=== PATIENT | female | born 1945 | race Caucasian/White ===

== ENCOUNTER 2019-01-20 08:09 | Emergency (ER) | payer MEDICARE, MEDICAID ==
[~2019-01-20] VITALS: Ht 160 cm; Wt 68.0 kg
[~2019-01-20 08:09] MED LIST: ASPI-986 PO; CLOP75TA33 PO; FOLI1TAB63 PO; INSULIN; ISOS60TA4 PO; LISI-604 PO; PRAV40TA58 PO
[2019-01-20 08:52] LABS: BASOPHILS % 0.4 % (0.0-2.0); EOSINOPHILS % 1.7 % (0.0-5.0); HEMATOCRIT. 35.2 % (36.0-48.0); HEMOGLOBIN. 11.6 g/dL (12.0-16.0); MEAN CORPUSCULAR HEMOGLOBIN 27.6 pg (28.0-32.0); MEAN CORPUSCULAR VOLUME 84.1 fL (81.0-99.0); MEAN PLATELET VOLUME 8.1 fl (7.4-10.4); MONOCYTES % 5.4 % (2.0-8.0); NEUTROPHILS % 67.5 % (40.0-76.0); PLATELET 426 x1000/uL (130-400); RED BLOOD CELL COUNT 4.19 mill/uL (4.2-5.4); RED CELL DISTRIBUTION WIDTH 14.7 % (11.6-14.6)
[2019-01-20 09:00] LABS: CHLORIDE 103 mEq/L (98-107)
[2019-01-20 09:01] LABS: PROTHROMBIN TIME 10.6 sec (9.6-11.0)
[2019-01-20 12:55] VITALS: BP 172/70
[2019-01-20 13:06] LABS: CLARITY URINE CLOUDY (CLEAR); COLOR URINE YELLOW (YELLOW); KETONES URINE NEGATIVE (NEGATIVE); LEUKOCYTE ESTERASE URINE 3+ (NEGATIVE); NITRITE URINE NEGATIVE (NEGATIVE); OCCULT BLOOD URINE NEGATIVE (NEGATIVE); PH URINE 6.5 (4.5-8.0); PROTEIN URINE 2+ (NEGATIVE); SPECIFIC GRAVITY URINE 1.009 (1.005-1.030); UROBILINOGEN URINE 0.2 E.U./dL (0.2-1.0)
== END 2019-01-20 13:01 | disposition left against medical advice (07) ==
LOC: ER 08:09 → ENRESERV 14:22 → CANBEDREQ 15:44
DX: R55 Syncope and collapse (principal); D64.9 Anemia, unspecified; E88.09 Other disorders of plasma-protein metabolism, not elsewhere classified; D47.3 Essential (hemorrhagic) thrombocythemia; I11.0 Hypertensive heart disease with heart failure; I50.9 Heart failure, unspecified; E11.9 Type 2 diabetes mellitus without complications; Z79.82 Long term (current) use of aspirin
CPT/HCPCS: 36415; 71045; 81003; 83880; 84484; 87077; 87186; 93005; 99284

== ENCOUNTER 2019-06-03 10:59 | Emergency (ER) | payer MEDICARE, MEDICAID ==
[~2019-06-03] VITALS: Ht 160 cm; Wt 68.0 kg
[2019-06-03] MEDS ORDERED: MORPHINE SULFATE 4 MG/ML CPJ (NOT FOR IM USE) IV STA (11:46)
[2019-06-03 13:03] LABS: BASOPHILS % 0.2 % (0.0-2.0); EOSINOPHILS % 0.2 % (0.0-5.0); HEMATOCRIT. 44.5 % (36.0-48.0); HEMOGLOBIN. 15.2 g/dL (12.0-16.0); LYMPHOCYTES % 10.8 % (20.0-50.0); MEAN CORPUSCULAR VOLUME 88.1 fL (81.0-99.0); MEAN PLATELET VOLUME 8.1 fl (7.4-10.4); NEUTROPHILS % 84.8 % (40.0-76.0); PLATELET 392 x1000/uL (130-400); RED BLOOD CELL COUNT 5.05 mill/uL (4.2-5.4); RED CELL DISTRIBUTION WIDTH 13.9 % (11.6-14.6)
[2019-06-03 13:10] LABS: CHLORIDE 100 mEq/L (98-107)
[2019-06-03] MEDS ORDERED: SODIUM CHLORIDE 0.9% 1,000 ML IV ONE (14:15)
[2019-06-03] MEDS ORDERED: AMLODIPINE 2.5MG TABLET PO ONE (14:15)
[2019-06-03 16:59] VITALS: BP 162/79
== END 2019-06-03 17:15 | disposition short-term general hospital (02) ==
LOC: ER 11:20 → CANBEDREQ 17:54
DX: S72.091A Other fracture of head and neck of right femur, initial encounter for closed fracture (principal); M25.551 Pain in right hip; W01.0XXA Fall on same level from slipping, tripping and stumbling without subsequent striking against object, initial encounter; Y93.89 Activity, other specified; Y92.89 Other specified places as the place of occurrence of the external cause; Y99.8 Other external cause status; E11.9 Type 2 diabetes mellitus without complications; E78.00 Pure hypercholesterolemia, unspecified; I10 Essential (primary) hypertension; Z79.82 Long term (current) use of aspirin; Z79.899 Other long term (current) drug therapy
CPT/HCPCS: 36415; 71045; 73502; 80053; 85025; 93005; 99285; J2270; J7030

== ENCOUNTER 2020-08-24 09:30 | Inpatient (IN) | payer OTHER, MEDICAID ==
[~2020-08-24] VITALS: Ht 154.9 cm; Wt 56.7 kg
[~2020-08-24 09:30] MED LIST changes: -ISOS60TA4 PO; +ISOS60TA76 PO; -LISI-604 PO; +LISI20TA31 PO
[2020-08-24 10:09] LABS: BASOPHILS % 0.3 % (0.0-2.0); EOSINOPHILS % 1.6 % (0.0-5.0); HEMATOCRIT. 39.7 % (36.0-48.0); HEMOGLOBIN. 13.7 g/dL (12.0-16.0); LYMPHOCYTES % 21.7 % (20.0-50.0); MEAN CORPUSCULAR HEMOGLOBIN 30.1 pg (28.0-32.0); MEAN CORPUSCULAR VOLUME 87.1 fL (81.0-99.0); MONOCYTES % 5.6 % (2.0-8.0); NEUTROPHILS % 70.8 % (40.0-76.0); PLATELET 364 x1000/uL (130-400); RED BLOOD CELL COUNT 4.56 mill/uL (4.2-5.4)
[2020-08-24 10:21] LABS: CHLORIDE 98 mEq/L (98-107)
[2020-08-24] MEDS ORDERED: DEXT 5%/0.45% NACL 500ML 500 ML IV ONE (14:15)
[2020-08-24] MEDS ORDERED: CEFTRIAXONE 1 G PREMIX 50 ML IV ONE (14:15)
[2020-08-24 21:00] VITALS: BP 189/91
[2020-08-24] MEDS ORDERED: ONDANSETRON HCL 4MG/2ML INJ IV PRN (22:15)
[2020-08-24] MEDS ORDERED: CLONIDINE 0.1MG TABLET PO PRN (22:15)
[2020-08-24] MEDS ORDERED: DEXTROSE 50% WATER 50ML SYRINGE IV PRN (22:15)
[2020-08-25] VITALS: BP 163/80
[2020-08-25 04:00] VITALS: BP 118/59
[2020-08-25] MEDS: BLOOD SUGAR DIAGNOSTIC STRIP TEST SCH ×4 (06:23→21:51)
[2020-08-25 07:12] LABS: BASOPHILS % 0.4 % (0.0-2.0); EOSINOPHILS % 2.6 % (0.0-5.0); HEMATOCRIT. 35.9 % (36.0-48.0); HEMOGLOBIN. 12.7 g/dL (12.0-16.0); LYMPHOCYTES % 27.4 % (20.0-50.0); MEAN CORPUSCULAR HEMOGLOBIN 30.5 pg (28.0-32.0); MEAN CORPUSCULAR VOLUME 86.3 fL (81.0-99.0); MEAN PLATELET VOLUME 7.9 fl (7.4-10.4); MONOCYTES % 6.7 % (2.0-8.0); NEUTROPHILS % 62.9 % (40.0-76.0); PLATELET 330 x1000/uL (130-400); RED BLOOD CELL COUNT 4.16 mill/uL (4.2-5.4); RED CELL DISTRIBUTION WIDTH 13.3 % (11.6-14.6)
[2020-08-25 07:23] LABS: CHLORIDE 104 mEq/L (98-107)
[2020-08-25 07:33] LABS: AMYLASE 60 IU/L (25-115)
[2020-08-25 07:40] LABS: LDL CHOLESTEROL 136 mg/dL (5-100)
[2020-08-25 07:41] LABS: HDL CHOLESTEROL 52 mg/dL (40-59)
[2020-08-25 08:00] VITALS: BP 114/65
[2020-08-25] MEDS ORDERED: LISINOPRIL 20MG TABLET PO SCH (09:00)
[2020-08-25] MEDS ORDERED: CLOPIDOGREL 75MG TABLET PO SCH (09:00)
[2020-08-25] MEDS: LISINOPRIL 20MG TABLET PO SCH (09:00)
[2020-08-25] MEDS: ISOSORBIDE MONONITRATE 60MG TABLET SR 24HR PO SCH (09:00)
[2020-08-25] MEDS: INSULIN LISPRO 100 UNITS/ML SUBCUT SCH ×4 (09:45→22:39)
[2020-08-25] MEDS: ASPIRIN 81MG TABLET PO SCH (09:53)
[2020-08-25] MEDS: FAMOTIDINE 20MG TABLET PO SCH (09:53)
[2020-08-25] MEDS: MULTIVITAMINS,THER W-MINERALS TABLET PO SCH (09:54)
[2020-08-25] MEDS: ENOXAPARIN 40MG/0.4ML SYR SUBCUT SCH (09:55)
[2020-08-25] MEDS ORDERED: INSULIN GLARGINE UD 100 UNITS/ML SYR SUBCUT SCH (10:00)
[2020-08-25 12:00] VITALS: BP 118/69
[2020-08-25 16:00] VITALS: BP_SYST 110; BP_SYST 142; BP_DIAS 56; BP_DIAS 81
[2020-08-25] MEDS ORDERED: ATORVASTATIN CALCIUM 40MG TABLET PO SCH (21:00)
[2020-08-25] MEDS: INSULIN GLARGINE UD 100 UNITS/ML SYR SUBCUT SCH (22:40)
[2020-08-26 02:26] LABS: CLARITY URINE CLEAR (CLEAR); COLOR URINE YELLOW (YELLOW); KETONES URINE NEGATIVE (NEGATIVE); LEUKOCYTE ESTERASE URINE NEGATIVE (NEGATIVE); NITRITE URINE NEGATIVE (NEGATIVE); OCCULT BLOOD URINE NEGATIVE (NEGATIVE); PROTEIN URINE 2+ (NEGATIVE); SPECIFIC GRAVITY URINE 1.015 (1.005-1.030); UROBILINOGEN URINE 0.2 E.U./dL (0.2-1.0)
[2020-08-26 04:00] VITALS: BP 141/75
[2020-08-26] MEDS: BLOOD SUGAR DIAGNOSTIC STRIP TEST SCH ×2 (06:42→12:02)
[2020-08-26 08:00] VITALS: BP 147/80
[2020-08-26] MEDS: INSULIN LISPRO 100 UNITS/ML SUBCUT SCH ×2 (08:27→12:51)
[2020-08-26] MEDS: ASPIRIN 81MG TABLET PO SCH (08:28)
[2020-08-26] MEDS: LISINOPRIL 20MG TABLET PO SCH (08:28)
[2020-08-26] MEDS: FAMOTIDINE 20MG TABLET PO SCH (08:28)
[2020-08-26] MEDS: MULTIVITAMINS,THER W-MINERALS TABLET PO SCH (08:28)
[2020-08-26] MEDS: ENOXAPARIN 40MG/0.4ML SYR SUBCUT SCH (08:29)
[2020-08-26] MEDS: ISOSORBIDE MONONITRATE 60MG TABLET SR 24HR PO SCH (08:59)
[2020-08-26] MEDS: INSULIN GLARGINE UD 100 UNITS/ML SYR SUBCUT SCH (10:34)
[2020-08-26 11:51] VITALS: BP 129/76
[2020-08-26 12:00] VITALS: BP 114/69
== END 2020-08-26 14:35 | disposition home or self-care (01) | DRG 638 ==
LOC: ER 10:08 → 6WST 14:55 → EDBEDREQ 14:57 → ENRESERV 19:39 → CANRESERV 19:39 → ENRESERV 19:58
PROVIDERS: ADMIT Internal Medicine; ATTEND Internal Medicine
DX: E11.65 Type 2 diabetes mellitus with hyperglycemia (principal); E87.1 Hypo-osmolality and hyponatremia; E44.0 Moderate protein-calorie malnutrition; E78.5 Hyperlipidemia, unspecified; F03.90 Unspecified dementia, unspecified severity, without behavioral disturbance, psychotic disturbance, mood disturbance, and anxiety; I10 Essential (primary) hypertension; E78.00 Pure hypercholesterolemia, unspecified; Z96.641 Presence of right artificial hip joint; W01.0XXA Fall on same level from slipping, tripping and stumbling without subsequent striking against object, initial encounter; Y93.01 Activity, walking, marching and hiking; M79.601 Pain in right arm; M79.604 Pain in right leg; Z79.899 Other long term (current) drug therapy; Z79.82 Long term (current) use of aspirin; Z79.4 Long term (current) use of insulin; Y92.89 Other specified places as the place of occurrence of the external cause; Y99.8 Other external cause status; Z68.23 Body mass index [BMI] 23.0-23.9, adult
CPT/HCPCS: 36415; 71045; 72170; 73070; 73560; 76700; 80048; 80053; 80061; 80076; 81003; 82140; 82150; 82962; 83036; 83605; 83880; 84484; 85025; 93005; 97162; 97530; 99285; J0696; J1650; J1815